=== PATIENT | male | born 1955 | race Caucasian/White ===

== ENCOUNTER 2016-09-25 18:36 | Emergency (ER) | payer BC ==
[~2016-09-25] VITALS: Ht 172.7 cm; Wt 81.6 kg
[~2016-09-25 18:36] MED LIST: AUGMENTIN875 MG PO; ENDOCET 5-3251 EACH PO
[2016-09-25 20:50] VITALS: BP 150/79
== END 2016-09-25 20:52 | disposition home or self-care (01) ==
LOC: EME 18:36
DX: S61.512A Laceration without foreign body of left wrist, initial encounter (principal); W26.8XXA Contact with other sharp object(s), not elsewhere classified, initial encounter
CPT/HCPCS: 99281; 99284

== ENCOUNTER 2016-10-28 18:03 | Inpatient (IN) | payer BC ==
[~2016-10-28] VITALS: Ht 172.7 cm; Wt 76.0 kg
[2016-10-28 18:25] LABS: EOSINOPHIL (%) 0.6 % (0-5); HEMATOCRIT 41.8 % (38.0-50.0); IMMATURE GRANULOCYTE (%) 0.5 % (0.0-0.7); INSTRUMENT ABS NEUTROPHIL CT 4.6 K/uL; LYMPHOCYTE COUNT 1.1 K/uL (1.0-2.8); MCH 30.5 PG (29.0-34.0); MCHC 34.7 G/DL (30.0-36.0); MONOCYTE (%) 7.4 % (3-12); MONOCYTE COUNT 0.5 K/uL (0-0.8); NEUTROPHIL (%) 73.9 % (45-76); NEUTROPHIL COUNT 4.6 K/uL (1.8-6.4); PLATELET COUNT 146 K/uL (156-360); RBC DIS.WIDTH-CV 11.9 % (11.8-14.6); RBC DIS.WIDTH-SD 38.6 % (39-53); RED BLOOD COUNT 4.75 M/uL (4.00-5.50); WHITE BLOOD COUNT 6.2 K/uL (4.1-10.2)
[2016-10-28 18:36] LABS: AMYLASE 48 IU/L (1-118); CHLORIDE 109 mEq/L (99-109); POTASSIUM 3.3 mEq/L (3.7-5.4); SODIUM 141 mEq/L (136-147)
[2016-10-28 18:38] LABS: GLUCOSE 98 mg/dL (70-99)
[2016-10-28 18:39] LABS: ANION GAP 9 MEQ/L (2-14)
[2016-10-28 18:41] LABS: SERUM ETHYL ALCOHOL 173 mg/dL
[2016-10-28 18:42] LABS: GFR ESTIMATE (CALCULATED) > 59 mL/min/
[2016-10-28 18:43] LABS: UREA NITROGEN (BUN) 15 mg/dL (9-23)
[2016-10-28 18:45] LABS: LIPASE 20 U/L (1.0-51.0)
[2016-10-28 20:30] LABS: PROTHROMBIN TIME 11.1 SEC (10.2-12.9)
[2016-10-28 20:33] LABS: PTT 27.2 SEC (25-37)
[2016-10-28 22:47] VITALS: BP 132/71
[2016-10-29 04:13] VITALS: BP 142/79
[2016-10-29 06:51] LABS: HEMATOCRIT 40.1 % (38.0-50.0); MCH 31.8 PG (29.0-34.0); MCHC 35.4 G/DL (30.0-36.0); MCV 89.7 FL (86-99); MEAN PLAT.VOLUME 10.3 uM^3 (9.0-12.4); PLATELET COUNT 147 K/uL (156-360); RBC DIS.WIDTH-CV 12.4 % (11.8-14.6); RBC DIS.WIDTH-SD 40.7 % (39-53); RED BLOOD COUNT 4.47 M/uL (4.00-5.50); WHITE BLOOD COUNT 9.2 K/uL (4.1-10.2)
[2016-10-29 07:14] LABS: ALKALINE PHOSPHATASE 54 IU/L (3-129); ANION GAP 8 MEQ/L (2-14); CHLORIDE 106 MEQ/L (99-109); GFR ESTIMATE (CALCULATED) > 59 mL/min/; GLUCOSE 106 mg/dL (70-99); SAMPLE HEMOLYSIS CHECK 0; SAMPLE ICTERIC CHECK 0; SAMPLE LIPEMIA CHECK 0; SODIUM 140 MEQ/L (136-147); TOTAL BILIRUBIN 0.8 MG/DL (0.0-1.0); UREA NITROGEN (BUN) 21 mg/dL (9-23)
[2016-10-29 07:48] VITALS: BP 160/83
[2016-10-29 11:32] VITALS: BP 146/76
[2016-10-29 16:38] VITALS: BP 133/76
[2016-10-29] MEDS ORDERED: SKELAXIN800 MG PO (18:18)
[2016-10-29] MEDS ORDERED: MOTRIN600 MG PO (18:18)
[2016-10-29] MEDS ORDERED: COLACE100 MG PO (18:18)
[2016-10-29] MEDS ORDERED: PERCOCET 5/31 TABLET PO (18:18)
[2016-10-29 19:55] VITALS: BP 156/85
== END 2016-10-29 20:31 | disposition home or self-care (01) | DRG 86 ==
LOC: EME 18:03 → EDOF 21:30 → ENRESERV 21:33 → CANRESERV 21:33 → ENRESERV 21:58 → 3EAST 22:55
PROVIDERS: Emergency Medicine; Thoracic Surgery (Cardiothoracic Vascular Surgery)
DX: S06.5X1A Traumatic subdural hemorrhage with loss of consciousness of 30 minutes or less, initial encounter (principal); S22.42XA Multiple fractures of ribs, left side, initial encounter for closed fracture; S01.01XA Laceration without foreign body of scalp, initial encounter; R40.2412 Glasgow coma scale score 13-15, at arrival to emergency department; E87.6 Hypokalemia; W17.89XA Other fall from one level to another, initial encounter; F10.129 Alcohol abuse with intoxication, unspecified; Y90.6 Blood alcohol level of 120-199 mg/100 ml; S40.012A Contusion of left shoulder, initial encounter; Z90.2 Acquired absence of lung [part of]; Z90.49 Acquired absence of other specified parts of digestive tract; Y92.9 Unspecified place or not applicable; Y93.89 Activity, other specified
CPT/HCPCS: 70450; 71010; 71260; 72125; 72129; 72132; 74177; 80048; 80053; 81003; 82150; 83690; 85025; 85027; 85610; 85730; 86850; 86900; 86901; 99281; 99285; G0480; J2405; J3010; J7030

== ENCOUNTER 2016-11-09 10:37 | Emergency (ER) | payer BC ==
[~2016-11-09] VITALS: Ht 172.7 cm; Wt 79.0 kg
[~2016-11-09 10:37] MED LIST changes: +COLACE100 MG PO; +MOTRIN600 MG PO; +PERCOCET 5/31 TABLET PO; +SKELAXIN800 MG PO
[2016-11-09] MEDS ORDERED: NAPROXEN500 MG PO (14:00)
[2016-11-09 14:16] VITALS: BP 140/94
== END 2016-11-09 14:17 | disposition home or self-care (01) ==
LOC: EME 10:37
DX: S43.52XA Sprain of left acromioclavicular joint, initial encounter (principal); M54.9 Dorsalgia, unspecified; W17.89XA Other fall from one level to another, initial encounter
CPT/HCPCS: 72070; 73030; 76882; 99281; 99283